=== PATIENT | male | born 1970 | race Caucasian/White ===

== ENCOUNTER 2019-11-13 13:26 | Outpatient (RCR) | payer OTHER, SELFPAY | END 2019-11-28 00:01 | LOC: SPT 13:26 | PROVIDERS: Family Provider Emergency Medicine Emergency Medical Services; Visit Provider Orthopaedic Surgery | DX: Z47.89 Encounter for other orthopedic aftercare (principal) | CPT/HCPCS: 97110 ×4; 97161; 97140; 97530 ==

== ENCOUNTER 2019-11-29 06:00 | Outpatient (RCR) | payer OTHER, SELFPAY | END 2019-12-29 23:59 | disposition home or self-care (01) | LOC: TPT 06:00 | PROVIDERS: Family Provider Emergency Medicine Emergency Medical Services; PCP Emergency Medicine Emergency Medical Services; Referring Provider Orthopaedic Surgery; Visit Provider Orthopaedic Surgery | DX: Z47.89 Encounter for other orthopedic aftercare (principal); S83.242D Other tear of medial meniscus, current injury, left knee, subsequent encounter; X58.XXXD Exposure to other specified factors, subsequent encounter | CPT/HCPCS: 97110; 97112; 97140; 97530 ==

== ENCOUNTER → 2019-12-26 13:16 | Outpatient (BNVA) | payer OTHER, SELFPAY | PROVIDERS: Family Provider Emergency Medicine Emergency Medical Services; PCP Emergency Medicine Emergency Medical Services; Referring Provider Emergency Medicine Emergency Medical Services; Visit Provider Otolaryngology | DX: R13.10 Dysphagia, unspecified (principal); J34.2 Deviated nasal septum; J34.3 Hypertrophy of nasal turbinates; J31.0 Chronic rhinitis; E07.89 Other specified disorders of thyroid | CPT/HCPCS: 96372; 99214; J3301 ==

== ENCOUNTER 2020-01-09 16:18 | Outpatient (CLI) | payer OTHER, SELFPAY ==
--- NOTE | 2020-01-09 16:30 | CT_ITS ---
WS: [id number] CT TEMPORAL BONES TECHNIQUE: Noncontrast CT of the temporal bones with coronal and sagittal reformatted images. CLINICAL INFORMATION: nose complaints COMPARISON: None. DLP: 957.[address] scans at [facility] use at least one of these dose optimization techniques: automat ed exposure control; mA and/or kV adjustment per patient size (includes targeted exams where dose is matched to clinical indication); or iterative reconstruction. FINDINGS: RIGHT: Mastoid air cells are well aerated. Normal external auditory canal. Ossicles are normal in appearance . Middle ear is well aerated. Normal tegmen tympani. Semicircular canals and cochlea are normal in ap pearance. Prussak's space is normal. Normal inner ear structures. Normal vestibular aqueduct. Facial nerve recess is normal. LEFT: Mastoid air cells are well aerated. Normal external auditory canal. Ossicles are normal in appearance . Middle ear is well aerated. Normal tegmen tympani. Semicircular canals and cochlea are normal in ap pearance. Prussak's space is normal. Normal inner ear structures. Normal vestibular aqueduct. Facial nerve recess is normal. Visualized intracranial contents and posterior fossa are normal. CT/CT temporal bone wo con* [id number] IMPRESSION: 1. Mastoid air cells are well aerated bilaterally. 2. Both middle ears are well aerated. Normal ossicles. 3. Normal inner ear structures bilaterally. 4. Visualized paranasal sinuses are well aerated.
== END 2020-01-09 16:19 | disposition home or self-care (01) ==
LOC: CT 16:19
PROVIDERS: Family Provider Emergency Medicine Emergency Medical Services; PCP Emergency Medicine Emergency Medical Services; Visit Provider Otolaryngology
DX: J34.9 Unspecified disorder of nose and nasal sinuses (principal)
CPT/HCPCS: 70480

== ENCOUNTER → 2020-01-15 11:12 | Outpatient (BNVA) | payer OTHER, SELFPAY | PROVIDERS: Family Provider Emergency Medicine Emergency Medical Services; PCP Emergency Medicine Emergency Medical Services; Visit Provider Otolaryngology | DX: R13.10 Dysphagia, unspecified (principal); J34.2 Deviated nasal septum; J34.3 Hypertrophy of nasal turbinates; J31.0 Chronic rhinitis; E07.89 Other specified disorders of thyroid | CPT/HCPCS: 99213; 99214 ==

== ENCOUNTER 2020-02-05 20:00 | Outpatient (CLI) | payer OTHER, SELFPAY | END 2020-02-05 20:01 | disposition home or self-care (01) | PROVIDERS: Family Provider Emergency Medicine Emergency Medical Services; PCP Emergency Medicine Emergency Medical Services; Visit Provider Emergency Medicine Emergency Medical Services | DX: G47.33 Obstructive sleep apnea (adult) (pediatric) (principal) | CPT/HCPCS: 95810; 95811 ==

== ENCOUNTER 2020-11-14 15:17 | Outpatient (RCR) | payer OTHER, SELFPAY | END 2020-11-28 23:59 | disposition home or self-care (01) | LOC: SPT 15:17 | PROVIDERS: PCP Emergency Medicine Emergency Medical Services; Visit Provider Orthopaedic Surgery | DX: S80.02XD Contusion of left knee, subsequent encounter (principal); X58.XXXD Exposure to other specified factors, subsequent encounter | CPT/HCPCS: 97110; 97161 ==

== ENCOUNTER 2020-11-29 06:00 | Outpatient (RCR) | payer OTHER, SELFPAY | END 2020-12-29 23:59 | disposition home or self-care (01) | LOC: SPT 06:00 | PROVIDERS: PCP Emergency Medicine Emergency Medical Services; Visit Provider Orthopaedic Surgery | DX: S80.02XD Contusion of left knee, subsequent encounter (principal); X58.XXXD Exposure to other specified factors, subsequent encounter | CPT/HCPCS: 97110 ==

== ENCOUNTER 2021-04-29 06:44 | Outpatient (CLI) | payer OTHER, SELFPAY ==
--- NOTE | 2021-04-29 07:15 | US_ITS ---
WS: [id number] ULTRASOUND ABDOMEN CLINICAL INFORMATION: R10.9 - Unspecified abdominal pain COMPARISON: None. FINDINGS: Liver Size: Normal. Craniocaudal length: 16.5 cm. Echogenicity: Dense Surface nodularity: None. Mass (size and location): None. Bile ducts Intrahepatic ducts: Normal. Common bile duct diameter: 0.4 cm. Gallbladder Normal. Gallstones: None. Gallbladder sludge: None. Gallbladder wall thickening: None. Pericholecystic fluid: None. Sonographic Wren sign: Absent. Pancreas Not well visualized Spleen Splenomegaly: Mild Craniocaudal length: 13.6 cm. Right kidney: Normal. Hydronephrosis: None. Size: 12.3 cm x 5.5 cm x 4.9 cm Left kidney: Normal. Hydronephrosis: None. Size: 12.7 cm x 5.5 cm x 5.5 cm. Abdominal aorta and IVC Visualized portions are normal. Ascites: None. US/US abdomen complete* [id number] IMPRESSION: 1. Diffuse fatty infiltration of the liver. 2. Normal gallbladder. 3. No hydronephrosis in either kidney. 4. Mild splenomegaly.
== END 2021-04-29 06:45 | disposition home or self-care (01) ==
LOC: RAD 06:46
PROVIDERS: PCP Emergency Medicine Emergency Medical Services; Visit Provider Surgery
DX: R10.9 Unspecified abdominal pain (principal); K76.0 Fatty (change of) liver, not elsewhere classified; R16.1 Splenomegaly, not elsewhere classified
CPT/HCPCS: 76700

== ENCOUNTER → 2021-05-09 09:58 | Outpatient (BNVA) | payer OTHER, SELFPAY | PROVIDERS: PCP Emergency Medicine Emergency Medical Services; Visit Provider Surgery | DX: Z01.818 Encounter for other preprocedural examination (principal); Z20.822 Contact with and (suspected) exposure to COVID-19 | CPT/HCPCS: 87635 ==

== ENCOUNTER 2021-05-14 07:23 | Day surgery (SDC) | payer OTHER, SELFPAY ==
--- NOTE | 2021-05-14 07:48 | ANES.PREANE2 ---
Pre-Anesthetic Assessment Pre-Anesthetic Assessment: Height/Weight: Height 1.75 m Preop Diagnosis: Bloating and abdominal pain Proposed Procedure: Operation Date: 05/14/21 09:00 Proposed Procedures p EGD/colon [id number] R10.9(Not Applicable) - Cody Tam MD s Colonoscopy(Not Applicable) - Cody Tam MD Was Beta Chencho taken within 24 hours: N/A Was Clonidine taken within 24 hours: N/A Social: Social History: No alcohol and No tobacco Exam: Pre-Anes Outpt Exam: alert, oriented x 3, clear to auscultation bilaterally and regular rate & rhythm Airway: Submandibular: WNL Cervical ROM: WNL MP: 2 Dentition: Full Pulmonary: Pulmonary: Sleep apnea CV/HEM: CV/HEM: HTN GI: GI: GERD Metabolic: Metabolic: Morbid obesity Musc/skel: Musc/skel: Lower Back Pain and OA/DJD Anesthetic Plan: ASA status: 3 Anesthesia: MAC Risk of > 500 ml blood loss (7ml/kg in children): No PFSH Anesthesia PFSH: Family History Other CHF (congestive heart failure), NYHA class I Diabetes Social History Smoking and tobacco status: former smoker Alcohol intake: current Alcohol intake frequency: few times a month Data Anesthesia Cardiac Studies: No Data to Display
[2021-05-14 07:49] VITALS: BMI 41.0
[2021-05-14] MEDS: sodium chloride 0.9% 1,000 ML 30 ML IV (08:25)
[2021-05-14 08:34] VITALS: BP 153/94; PULSE 69; RESP 18; TEMP 36.8; O2SAT 99
--- NOTE | 2021-05-14 09:38 | W.PM.OPSFHP ---
Same Day Surgery H&P Indication for Procedure/HPI DATE OF PROCEDURE: May 14, 2021 CHIEF COMPLAINT/INDICATIONFOR SURGICAL PROCEDURE: Abdominal pain PREOP DIAGNOSIS: Bloating and abdominal pain PLANNED PROCEDRUE: Operation Date: 05/14/21 09:00 Proposed Procedures p EGD/colon [id number] R10.9(Not Applicable) - Cody Tam MD s Colonoscopy(Not Applicable) - Cody Tam MD This is a pleasant 50 years old gentleman Morbidly obese with a current BMI of 41 and weighs 275 pounds.Presents today to my practice with history of fatty dyspepsia associated with bloating and feeling a [place] at the epigastric area. Patient reports crampy abdominal pain which take him down to the floor. Nothing seems to make it better or worse and he does not recall specific food items yet it seems that greasy food makes it worse. Denies nonintentional weight loss is still have his gallbladder. He reports that he had a previous EGD and was reported that he had acid reflux. Denies any bleeding per rectum or history of colon cancer.He is 50 years of age and he never had a screening colonoscopy. Interim history 05/14/2021 Patient comes today for diagnostic EGD and screening colonoscopy ROS All systems have been reviewed negative except as per the above or per problem list Medications/Allergies* Home Medications Medication Instructions Recorded Confirmed Type diphenhydramine HCl 25 mg capsule 25 mg PO .at bedtime PRN cap 12/26/19 05/14/21 History fexofenadine 30 mg disintegrating 60 mg PO .as needed tab 12/26/19 05/12/21 History tablet losartan 100 1 tab PO QDAY 12/26/19 05/14/21 History mg-hydrochlorothiazide 25 mg tablet multivitamin 1 tab PO QDAY 12/26/19 05/14/21 History pantoprazole 40 mg tablet,delayed 40 mg PO QDAY 12/26/19 05/14/21 History release amlodipine 5 mg tablet 5 mg PO BID 03/24/21 05/14/21 History albuterol 90 mcg INHALATION QID PRN 05/12/21 05/12/21 History naproxen sodium 500 mg PO BID PRN 05/12/21 05/14/21 History Allergies/Adverse Reactions Allergy/AdvReac Type Severity Reaction Status Date / Time No Known Allergies Allergy Verified 05/14/21 09:39 Current Medications: Generic Name Dose Route Start Last Admin Trade Name Griselda PRN Reason Stop Dose Admin Sodium Chloride 1,000 mls @ 30 mls/hr 05/14/21 08:00 05/14/21 08:25 Sodium Chloride 0.9% IV 05/15/21 07:59 30 mls/hr .Q24H BECKA Administration Pertinent History/Comorbid Conditions* Family History (Updated 12/26/19 @ 13:36 by Jud Grace LPN) CHF (congestive heart failure), NYHA class I Diabetes Social History Smoking and tobacco status: former smoker Alcohol intake: current Alcohol intake frequency: few times a month Pertinent Exam Findings alert, oriented x 3, clear to auscultation bilaterally, regular rate & rhythm and procedure specific exam findings (Abdominal examination nontender nondistended soft) Ultrasound of the abdomen showed 1. Diffuse fatty infiltration of the liver. 2. Normal gallbladder. 3. No hydronephrosis in either kidney. 4. Mild splenomegaly. Recommendations Surgery/Procedure today (EGD and colonoscopy with possible biopsy) Other Plans: Plan of care; After thorough history and physical examination and reviewing the chart, plan to perform a diagnostic esophagogastroduodenoscopy and screening colonoscopy with possible biopsy and possible polypectomy. I discussed with the patient in detail the risks,benefits,alternatives and indications.The risk of aspiration, bleeding, soft tissue injury, perforation of the stomach/esophagus/colon and other potential concomitant complications were explained to the patient in details also the potential need for Thoracotomy and or Laproscoy/Laparotomy to repair any related complications including but not limited to colectomy and or Closotomy. The patient understood this well and did agree to proceed. 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
[2021-05-14 10:08] VITALS: BP 101/59; PULSE 66; RESP 16; TEMP 36.2; O2SAT 92
[2021-05-14 10:15] VITALS: BP 111/64; PULSE 71; RESP 18; O2SAT 98
[2021-05-14 10:20] VITALS: BP 125/66; PULSE 64; RESP 18; TEMP 36.4; O2SAT 94
--- NOTE | 2021-05-14 13:57 | ANE.PACU2 ---
Inpatient post-anesthesia follow up: Airway intact: Yes Vital signs: Temperature 97.6 F Pulse Rate 64 Respiratory Rate 18 Blood Pressure 125/66 Pulse Oximetry 94 Oxygen Delivery Me thod Room Air Oxygen Flow Rate Fraction of Inspir ed Oxygen Hydration adequate: Yes Nausea and vomiting: No Pain level: 1 Mental status: Baseline
[2021-05-15 06:29] LABS: H. Pylori / CLO Test Negative
== END 2021-05-14 10:42 | disposition home or self-care (01) ==
PROVIDERS: PCP Emergency Medicine Emergency Medical Services; Visit Provider Surgery
PROC: 0DJ08ZZ Inspection of Upper Intestinal Tract, Via Natural or Artificial Opening Endoscopic (ICD-10-PCS; CPT 43235; principal; 2021-05-14 09:00)
PROC: 0DJD8ZZ Inspection of Lower Intestinal Tract, Via Natural or Artificial Opening Endoscopic (ICD-10-PCS; CPT 45378; 2021-05-14 09:00)
DX: Z12.11 Encounter for screening for malignant neoplasm of colon (principal); R10.9 Unspecified abdominal pain; R14.0 Abdominal distension (gaseous); K29.70 Gastritis, unspecified, without bleeding; E66.01 Morbid (severe) obesity due to excess calories; Z68.41 Body mass index [BMI] 40.0-44.9, adult; Z87.891 Personal history of nicotine dependence; G47.30 Sleep apnea, unspecified; I10 Essential (primary) hypertension; K21.9 Gastro-esophageal reflux disease without esophagitis; M19.90 Unspecified osteoarthritis, unspecified site; Z82.49 Family history of ischemic heart disease and other diseases of the circulatory system; Z83.3 Family history of diabetes mellitus
CPT/HCPCS: 43239; 45378; 87077; 96360; 96361; J2704; J7030

== ENCOUNTER 2021-05-16 09:00 | Outpatient (CLI) | payer OTHER, SELFPAY ==
--- NOTE | 2021-05-16 10:00 | NM_ITS ---
WS: [id number] NUCLEAR MEDICINE HIDA SCAN CLINICAL INFORMATION: R10.9 - Unspecified abdominal pain TECHNIQUE: Following intravenous administration of 4.8 mCi of technetium 99m mebrofenin, images of th e abdomen were obtained over the course of 60 minutes. Next, gallbladder ejection fraction was determ ined by obtaining preprandial and one-hour postprandial images of the gallbladder following oral tana stion of Ensure. COMPARISON: Ultrasound April 29, 2021 FINDINGS: Normal hepatic uptake at 5 minutes. Gallbladder is visualized by 10 minutes. No evidence of acute cho lecystitis. Small bowel and common bile duct are visualized. No evidence of obstructing choledocholit hiasis. Gallbladder ejection fraction 0%. No emptying at 60 minutes. Findings suspicious for chronic cholecys titis. NM/NM hepatobiliary w phar* [id number] IMPRESSION: No significant gallbladder emptying at 60 minutes suspicious for chronic cholec ystitis.
== END 2021-05-16 09:01 | disposition home or self-care (01) ==
LOC: RAD 09:03
PROVIDERS: PCP Emergency Medicine Emergency Medical Services; Visit Provider Surgery
DX: R10.9 Unspecified abdominal pain (principal)
CPT/HCPCS: 78227; A9537

== ENCOUNTER 2021-05-29 09:11 | Outpatient (CLI) | payer OTHER, SELFPAY ==
[2021-05-29] MEDS: iohexol 300 mg/mL 50 mL Btl PO (09:42)
--- NOTE | 2021-05-29 11:00 | CT_ITS ---
WS: [id number] CT ABDOMEN AND PELVIS WITH CONTRAST HISTORY: R10.9 - Unspecified abdominal pain TECHNIQUE: Imaging performed of the abdomen and pelvis with IV contrast. Single phase imaging of the abdomen. Coronal and sagittal reformats are submitted. All CT scans at [facility] use at least one of these dose optimization techniques: automated exposure control; mA and/or kV adjustment per patient size (includes targeted exams where dose is matched to clinical indication); or iterativ e reconstruction. IV CONTRAST: Omnipaque 300; 95 mL IV. Oral contrast: Yes. DLP: 1111.74 mGycm COMPARISON: None available. Lower thorax: Lung bases are clear. Heart is normal size. No hiatal hernia. Liver/biliary system: Normal size with no intrahepatic dilatation. Gallbladder: Normal. No gallstones or wall thickening. No pericholecystic fluid. Pancreas: Normal size pancreas and pancreatic duct. No adjacent inflammation. Spleen: Normal size spleen. No mass or infarct. Adrenal glands: Normal. Right kidney: Normal. Left kidney: Normal. Aorta: Normal. Lymphadenopathy: None. Free fluid: None. GI tract: Unremarkable. Normal appendix. No obstruction or diverticular disease. Abdominal wall: Unremarkable abdominal wall. No hernia. Pelvis: No free fluid or adenopathy within the pelvis. Bones: Unremarkable. CT/CT abdomen pelvis w con* [id number] IMPRESSION: 1. No acute abdominal or pelvic abnormalities. 2. Normal appendix. 3. No significant diverticular disease.
[2021-05-29] MEDS: iohexol 300 mg/mL 100 mL Btl IV (11:14)
== END 2021-05-29 09:12 | disposition home or self-care (01) ==
PROVIDERS: PCP Emergency Medicine Emergency Medical Services; Visit Provider Surgery
DX: R10.9 Unspecified abdominal pain (principal)
CPT/HCPCS: 74177; Q9967

== ENCOUNTER → 2024-04-04 09:48 | Outpatient (BNVA) | payer OTHER, SELFPAY | PROVIDERS: PCP Emergency Medicine Emergency Medical Services; Visit Provider Nurse Practitioner Family | DX: A63.0 Anogenital (venereal) warts (principal); L91.8 Other hypertrophic disorders of the skin; L82.1 Other seborrheic keratosis; D22.5 Melanocytic nevi of trunk; L57.8 Other skin changes due to chronic exposure to nonionizing radiation | CPT/HCPCS: 17110; 99203 ==

== ENCOUNTER → 2024-05-04 14:52 | Outpatient (BNVA) | payer OTHER, SELFPAY | PROVIDERS: PCP Emergency Medicine Emergency Medical Services; Visit Provider Nurse Practitioner Family | DX: A63.0 Anogenital (venereal) warts (principal); L91.8 Other hypertrophic disorders of the skin | CPT/HCPCS: 17110; 99212 ==

== ENCOUNTER → 2024-06-15 11:11 | Outpatient (BNVA) | payer OTHER, SELFPAY | PROVIDERS: PCP Emergency Medicine Emergency Medical Services; Visit Provider Nurse Practitioner Family | DX: A63.0 Anogenital (venereal) warts (principal); L91.8 Other hypertrophic disorders of the skin; L57.8 Other skin changes due to chronic exposure to nonionizing radiation; D22.39 Melanocytic nevi of other parts of face | CPT/HCPCS: 17110; 99213 ==

== ENCOUNTER → 2024-08-16 10:28 | Outpatient (BNVA) | payer OTHER, SELFPAY | PROVIDERS: PCP Emergency Medicine Emergency Medical Services; Visit Provider Nurse Practitioner Family | DX: A63.0 Anogenital (venereal) warts (principal); L57.8 Other skin changes due to chronic exposure to nonionizing radiation; D22.39 Melanocytic nevi of other parts of face; S30.861A Insect bite (nonvenomous) of abdominal wall, initial encounter; X58.XXXA Exposure to other specified factors, initial encounter | CPT/HCPCS: 17110; 99213 ==